=== PATIENT | female | born 1975 | race Caucasian/White ===

== ENCOUNTER 2016-03-20 07:47 | Outpatient (CLI) | payer OTHER | END 2016-03-20 07:48 | disposition home or self-care (01) | DX: K52.9 Noninfective gastroenteritis and colitis, unspecified (principal) ==

== ENCOUNTER 2016-04-08 10:53 | Day surgery (SDC) | payer OTHER ==
[2016-04-08] MEDS ORDERED: LACTATED RINGERS 1,000 ML IV ONE (11:06)
[2016-04-08] MEDS ORDERED: fentaNYL 250 MCG/5 ML VIAL IVP ONE (12:09)
[2016-04-08] MEDS ORDERED: MIDAZOLAM 2 MG/2 ML VIAL IVP ONE (12:09)
== END 2016-04-08 10:54 | disposition home or self-care (01) ==
PROC: 0DB58ZX Excision of Esophagus, Via Natural or Artificial Opening Endoscopic, Diagnostic (ICD-10-PCS; principal; 2016-04-08 12:00)
PROC: 0DBE8ZX Excision of Large Intestine, Via Natural or Artificial Opening Endoscopic, Diagnostic (ICD-10-PCS; 2016-04-08 12:00)
DX: R13.14 Dysphagia, pharyngoesophageal phase (principal); K52.9 Noninfective gastroenteritis and colitis, unspecified; R63.4 Abnormal weight loss; R11.2 Nausea with vomiting, unspecified; R12 Heartburn; R14.0 Abdominal distension (gaseous); R14.3 Flatulence; K21.9 Gastro-esophageal reflux disease without esophagitis; K64.0 First degree hemorrhoids; F17.210 Nicotine dependence, cigarettes, uncomplicated; Z98.84 Bariatric surgery status; Z83.79 Family history of other diseases of the digestive system; Z87.898 Personal history of other specified conditions
CPT/HCPCS: 43239; 45380; J3010; J7120

== ENCOUNTER 2016-05-09 20:05 | Emergency (ER) | payer OTHER ==
[2016-05-09] MEDS ORDERED: IOPAMIDOL-300 100 ML VIAL IVP ONE (21:54)
[2016-05-09] MEDS ORDERED: HYDROmorphone 1 MG/ML SYRINGE IVP STA (23:03)
[2016-05-09] MEDS ORDERED: HYDROcod/ACET 5/325 Prepack 6 PO STA (23:03)
[2016-05-09] MEDS ORDERED: HYDROmorphone 1 MG/ML SYRINGE ONE (23:07)
[2016-05-09] MEDS ORDERED: HYDROcod/ACET 5/325 Prepack 6 PO ONE (23:08)
== END 2016-05-09 23:25 | disposition home or self-care (01) ==
DX: R10.84 Generalized abdominal pain (principal); K80.80 Other cholelithiasis without obstruction; Z98.84 Bariatric surgery status; J45.909 Unspecified asthma, uncomplicated; K21.9 Gastro-esophageal reflux disease without esophagitis; Z87.11 Personal history of peptic ulcer disease; F17.200 Nicotine dependence, unspecified, uncomplicated
CPT/HCPCS: 36415; 74177; 80053; 81003; 81025; 83690; 85025; 96374; 99284; J1170; Q9967

== ENCOUNTER 2016-07-07 22:37 | Emergency (ER) | payer OTHER ==
[2016-07-07 23:05] LABS: BILIRUBIN,URINE NEGATIVE (NEGATIVE)
[2016-07-07 23:10] LABS: UA w/ MICROSCOPIC CHARGE YES
[2016-07-07 23:14] LABS: UR CULTURE IF IND NOT INDICATED; WBC,URINE 0-3 /HPF (0-5)
--- NOTE | 2016-07-08 01:24 | ED Physician Documentation ---
PD HPI ABD PAIN - Stated complaint Stated Complaint: STOMACH PX - Chief complaint Chief Complaint: Abd Pain - History obtained from History obtained from: Patient - History of Present Illness Timing - onset: Enter time (19:15) Timing - duration: Hours Timing - details: Abrupt onset Pain level now: 6 Quality: Pain Location: All over / everywhere Radiation: Lower back Improved by: Other (no ameliorating factors) Worsened by: Moving Associated symptoms: Nausea. No: Fever, Vomiting, Diarrhea, Constipation Similar symptoms before: No diagnosis (similar symptoms in the past, T+R 2 months ago from this ED for similar symptoms, and she has seen PMD and GI with w /u that included upper and lower endoscopy without diagnostic results ( cholelithiasis on CT, not clear if this was etiology of her symptoms)) Review of Systems Constitutional: denies: Fever, Chills, Sweats Cardiac: reports: Reviewed and negative Respiratory: reports: Reviewed and negative GI: reports: Abdominal Pain, Nausea. 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 - Present Medications Home Medications: Ambulatory Orders Medication Instructions Recorded Confirmed Albuterol 2.5 mg INH Q4H PRN 09/23/15 04/08/16 Fluticasone/Salmeterol [Advair 250 mg PO DAILY 09/23/15 04/07/16 250-50 Diskus] Montelukast [Singulair] 10 mg PO QPM 09/23/15 04/07/16 Pantoprazole [Protonix] 40 mg PO DAILY 09/23/15 04/07/16 traZODone [Desyrel] 150 mg PO HS 09/23/15 04/07/16 Ferrous Sulfate [Iron] 325 mg PO DAILY 04/07/16 04/07/16 HYDROcod/ACETAM 5/325 [[place] 5/325] 1 - 2 ea PO Q6H PRN #15 tablet 05/09/16 - Allergies Allergies/Adverse Reactions: Allergies Allergy/AdvReac Type Severity Reaction Status Date / Time Macrolide Antibiotics AdvReac Unknown Verified 05/09/16 20:09 NSAIDS (Non-Steroidal AdvReac Unknown Verified 05/09/16 20:09 Anti-Inflamma ondansetron HCl * AdvReac Unknown Verified 05/09/16 20:09 [From Zofran (as hydrochloride)] - Social History Does the pt smoke?: Yes Smoking Status: Light tobacco smoker Does the pt drink ETOH?: No Does the pt have substance abuse?: No - Immunizations Immunizations are current?: Yes - POLST Patient has POLST: No PD ED PE NORMAL - Vitals Vital signs reviewed: Yes - General General: Alert and oriented X 3, Well developed/nourished, Other (appears uncomfortable) - Cardiac Cardiac: RRR, No murmur - Respiratory Respiratory: No respiratory distress, Clear bilaterally - Abdomen Abdomen: Soft, Non tender, Non distended - Back Back: No CVA TTP Results - Vitals Vitals: Oxygen O2 Source Room air - Labs Labs: Laboratory Tests 07/07/16 07/08/16 07/08/16 22:54 01:54 01:54 WBC 10.2 RBC 4.24 Hgb 11.8 L Hct 35.1 L MCV 82.6 MCH 27.8 MCHC 33.7 RDW 13.9 Plt Count 215 MPV 8.5 Neut # 7.3 H Lymph # 1.9 [place] # 0.7 Eos # 0.2 Baso # 0.1 Absolute Nucleated RBC 0.00 Nucleated RBCs 0.0 Sodium 139 Potassium 3.8 Chloride 106 Carbon Dioxide 26 Anion Gap 7.0 BUN 12 Creatinine 0.7 Estimated GFR (MDRD) 94 Glucose 99 Calcium 8.7 Total Bilirubin 0.5 AST 13 ALT < 10 L Alkaline Phosphatase 50 Total Protein 6.6 L Albumin 3.7 Globulin 2.9 Albumin/Globulin Ratio 1.3 Lipase 20 L Urine Color YELLOW Urine Clarity CLEAR Urine pH 6.0 Ur Specific [place] 1.025 Urine Protein NEGATIVE Urine Glucose (UA) NEGATIVE Urine Ketones NEGATIVE Urine Occult Blood LARGE H Urine Nitrite NEGATIVE Urine Bilirubin NEGATIVE Urine Urobilinogen 0.2 (NORMAL) Ur Leukocyte Esterase NEGATIVE Urine RBC 6-10 H Urine WBC 0-3 Ur Squamous Epith Cells RARE Squamous Urine Bacteria Rare Ur Microscopic Review INDICATED Urine Culture Comments NOT INDICATED PD MEDICAL DECISION MAKING - ED course Complexity details: reviewed old records, reviewed results, re-evaluated patient , considered differential, d/w patient Departure - Departure Disposition: 01 Home, Self Care Clinical Impression: Abdominal pain Qualifiers: Abdominal location: generalized Qualified Code(s): R10.84 - Generalized abdominal pain Condition: Good Instructions: ED Abdominal Pain Unkn Cause Follow-Up: [facility] Callahan [Provider Group] - Within 3 Days Discharge Date/Time: 07/08/16 04:52
[2016-07-08] MEDS ORDERED: HYDROmorphone 1 MG/ML SYRINGE IVP STA (01:41)
[2016-07-08] MEDS ORDERED: SODIUM CHLORIDE 0.9% 1,000 ML IV STA (01:41)
[2016-07-08] MEDS ORDERED: PROMETHAZINE INJ 12.5 MG in SODIUM CHLORIDE 0.9% 50 ML IV STA (01:41)
[2016-07-08] MEDS ORDERED: HYDROmorphone 1 MG/ML SYRINGE ONE (02:04)
[2016-07-08] MEDS ORDERED: PROMETHAZINE 25 MG/1 ML VIAL ONE (02:04)
[2016-07-08 02:15] LABS: BASOPHILS # (AUTO) 0.1 10^3/uL (0.0-0.1); BASOPHILS % (AUTO) 0.5 %; EOSINOPHILS # (AUTO) 0.2 10^3/uL (0.0-0.7); EOSINOPHILS % (AUTO) 2.3 %; HCT - HEMATOCRIT 35.1 % (37.0-47.0); HGB - HEMOGLOBIN 11.8 g/dL (12.0-16.0); LYMPHOCYTES # (AUTO) 1.9 10^3/uL (1.5-3.5); LYMPHOCYTES % (AUTO) 18.9 %; MEAN CORPUSCULAR HEMOGLOBIN 27.8 pg (27.0-31.0); MEAN CORPUSCULAR HGB CONC 33.7 g/dL (32.0-36.0); MEAN CORPUSCULAR VOLUME 82.6 fL (81.0-99.0); MEAN PLATELET VOLUME 8.5 fL (7.9-10.8); MONOCYTES # (AUTO) 0.7 10^3/uL (0.0-1.0); MONOCYTES % (AUTO) 6.5 %; NEUTROPHILS # (AUTO) 7.3 10^3/uL (1.5-6.6); NEUTROPHILS % (AUTO) 71.8 %; RED BLOOD COUNT 4.24 10^6/uL (4.20-5.40); RED CELL DISTRIBUTION WIDTH 13.9 % (12.0-15.0); UNCORRECTED WHITE BLOOD COUNT 10.2 x10^3/uL; WHITE BLOOD COUNT 10.2 x10^3/uL (4.8-10.8)
[2016-07-08 02:30] LABS: ALBUMIN/GLOBULIN RATIO 1.3 (1.0-2.2); BILIRUBIN,TOTAL 0.5 mg/dL (0.2-1.0); BUN - BLOOD UREA NITROGEN 12 mg/dL (6-20); CALCIUM 8.7 mg/dL (8.5-10.3); CARBON DIOXIDE - CO2 26 mmol/L (21-32); CHLORIDE 106 mmol/L (101-111); CREATININE 0.7 mg/dL (0.4-1.0); GFR - MDRD 94 (>89); GLUCOSE 99 mg/dL (70-100); LIPASE 20 U/L (22-51); POTASSIUM 3.8 mmol/L (3.5-5.0); SODIUM 139 mmol/L (135-145); TOTAL PROTEIN 6.6 g/dL (6.7-8.2)
[2016-07-08] MEDS ORDERED: oxyCOD/ACETAMIN 5 MG/325 MG TABLET PO STA (04:37)
[2016-07-08] MEDS ORDERED: oxyCOD/ACETAMIN 5 MG/325 MG TABLET PO ONE (04:37)
[2016-07-08 04:52] VITALS: BP 113/62
== END 2016-07-08 04:52 | disposition home or self-care (01) ==
LOC: ED 22:37
DX: R10.84 Generalized abdominal pain (principal); M54.5 Low back pain; J45.909 Unspecified asthma, uncomplicated; K21.9 Gastro-esophageal reflux disease without esophagitis; Z87.11 Personal history of peptic ulcer disease; F17.200 Nicotine dependence, unspecified, uncomplicated
CPT/HCPCS: 36415; 80053; 81001; 83690; 85025; 96374; 96375; 99283; A9270; J1170; 81003; 87086

== ENCOUNTER 2017-12-31 21:27 | Outpatient (CLI) | payer OTHER | END 2017-12-31 21:28 | disposition short-term general hospital (02) | LOC: EMS 21:27 | PROVIDERS: ATTEND Surgery | DX: R10.10 Upper abdominal pain, unspecified (principal) | CPT/HCPCS: A0425; A0427 ==

== ENCOUNTER 2018-07-29 11:41 | Day surgery (SDC) | payer OTHER ==
[2018-07-29] MEDS ORDERED: BUPIVACAINE 0.25%-EPI 1:200000 PF 30 ML VIAL ONE (12:18)
--- NOTE | 2018-07-29 12:37 | ANESTHESIA ---
Pre-Anesthesia VS, & Labs - Diagnosis Missed - Procedure Suction D and C Vital Signs: Temp Pulse Resp BP Pulse Ox 36.5 C 68 18 124/70 100 07/29/18 12:15 07/29/18 12:15 07/29/18 12:15 07/29/18 12:15 07/29/18 12:15 Height 5 ft 6 in Weight (kg) 92.53 kg Body Mass Index 25.8 - NPO >8 hours, Other (Water at 1000) - Is Patient ?: No - Lab Results Lab results reviewed: Yes Home Medications and Allergies Home Medications: Ambulatory Orders Cetirizine [ZyrTEC] 10 mg PO DAILY 07/28/18 Fluticasone/Salmeterol [Advair 500-50 Diskus] 1 each IH 07/28/18 Rabeprazole Sodium [Aciphex] 20 mg PO BID 07/28/18 tiZANidine [Zanaflex] 4 mg PO QPM 07/28/18 Albuterol 2.5 mg INH Q4H PRN 09/23/15 Montelukast [Singulair] 10 mg PO QPM 09/23/15 traZODone [Desyrel] 50 mg PO HS 09/23/15 Ferrous Sulfate [Iron] 325 mg PO DAILY 04/07/16 Cetirizine [ZyrTEC] 10 mg PO DAILY 07/28/18 Fluticasone/Salmeterol [Advair 500-50 Diskus] 1 each IH 07/28/18 Rabeprazole Sodium [Aciphex] 20 mg PO BID 07/28/18 tiZANidine [Zanaflex] 4 mg PO QPM 07/28/18 Allergies/Adverse Reactions: Allergies Allergy/AdvReac Type Severity Reaction Status Date / Time Macrolide Antibiotics Allergy Respiratory Verified 07/28/18 14:11 ondansetron HCl * Allergy Respiratory Verified 07/28/18 14:11 [From Zofran (as hydrochloride)] NSAIDS (Non-Steroidal AdvReac Unknown Verified 07/28/18 14:11 Anti-Inflamma Anes History & Medical History - Anesthetic History Anesthesia Complications: reports: No previous complications Family history of Anesthesia Complications: Denies Family history of Malignant Hyperthermia: Denies - Medical History Cardiovascular: reports: None Pulmonary: reports: Asthma Gastrointestinal: reports: None, GERD Urinary: reports: None, Other Neuro: reports: None Musculoskeletal: reports: None, Fibromyalgia Endocrine/Autoimmune: reports: None Blood Disorders: reports: None, Anemia Skin: reports: None Smoking Status: Light tobacco smoker Psychosocial: reports: No issues indicated - Surgical History General: Cholecystectomy, Gastric surgery Gynecologic: section, Breast implants Exam General: Alert Dental: WNL, TMJ Mouth Opening: Greater than 4 Fingerbreadths Neck Mobility: Normal Mallampati classification: I Respiratory: Lungs clear Cardiovascular: Regular rate Neurological: Normal speech Mental/Cognitive Status: Alert/Oriented X3 Cognitive Status: Within normal limits Plan Anesthesia Type: General Consent for Procedure(s) Verified and Reviewed: Yes Code Status: Attempt Resuscitation ASA classification: 2-Mild systemic disease Is this case an emergency?: No
[2018-07-29] MEDS ORDERED: LACTATED RINGERS 1,000 ML IV ONE (13:52)
[2018-07-29] MEDS ORDERED: BUPIVACAINE 0.25%-EPI 1:200000 PF 10 ML VIAL SUBQ ONE (13:58)
[2018-07-29] MEDS ORDERED: PROPOFOL 200 MG/20 ML VIAL IVP ONE (14:00)
[2018-07-29] MEDS ORDERED: LIDOCAINE-MPF 2% 5 ML VIAL IM ONE (14:00)
[2018-07-29] MEDS ORDERED: MIDAZOLAM 2 MG/2 ML VIAL IVP ONE (14:00)
[2018-07-29] MEDS ORDERED: DEXAMETHASONE 4 MG/ML VIAL IVP ONE (14:00)
[2018-07-29] MEDS ORDERED: fentaNYL 100 MCG/2 ML VIAL IVP ONE (14:00)
[2018-07-29] MEDS ORDERED: HYDROcod/ACETAM 10 MG/325 MG TABLET PO PRN (14:06)
--- NOTE | 2018-07-29 14:10 | OPERATIVE REPORT ---
Operative Report - General Procedure Date: 07/29/18 Planned Procedure: Suction dilation and curettage Pre-Op Diagnosis: Missed Procedure Performed: Suction dilation and curettage Post Op Diagnosis: ZURI - Procedure Note Primary Surgeon: Dr. Neda Interiano Secondary Surgeon: None Anesthesia Provider: Daryl Mendoza Anesthesia Technique: General LMA Pathology: Intrauterine contents IV Fluids (mL): 200 Estimated Blood Loss (mL): 15 Urine Output (mL): 0 Indications: The patient is a 42-year-old 2 para 1 female here for surgical management of an early miscarriage. The loss was diagnosed following an inappropriate rise in her beta hCG levels as well as lack of development of a viable intrauterine and inconsistency with sonographic gestational age and date of conception. No clear pole or heartbeat was ever seen during this gestation. She attempted to medically manage the miscarriage using misoprostol 800 mcg per vagina on 23 July. However, subsequently she did not pass tissue and only developed cramping and bleeding. Rather than attempt a second dose of medication, she desired surgical management in the form of a dila tion and curettage. The risks, benefits, limitations, alternatives, and expectations of surgery were discussed. The consent was then reviewed and signed prior to the date of surgery. Findings: Exam under anesthesia: The uterus was midplane to retroverted. No adnexal masses were palpable. The cervix was closed. Operative findings: The cervix was dilated to approximately 8 mm. Some mucus was noted at the external cervical os. There was scant dark blood in the vagina. Dilation and curettage resulted in removal of a moderate amount of likely products of conception. Complications: None - Other Other Information/Narrative: The patient was taken to the operating room, where general anesthesia with LMA was administered without difficulty. She was then positioned in the high dorsal lithotomy position with her lower extremities in [place] stirrups. Exam under anesthesia was then performed with the findings as noted above. Vagina and perineum were then prepped and draped in a sterile fashion. The patient had voided prior to entering the OR. Procedure Time-Out was then performed. A sterile bivalved speculum was then placed into the vagina, and the anterior lip of the cervix was grasped with a single-tooth tenaculum. Quarter percent Marcaine with epinephrine was then injected at the 2:00, 4:00, 7:00, and 10:00 positions for a paracervical block. Serial dilation using Hegar dilators was started, then an 8 mm curved rigid suction curette was easily passed through the cervical os and gently advanced to the uterine fundus. Using gentle suction, tissue and clot were removed. Sharp curettage was then performed with minimal additional tissue noted. Good crie was noted on all 4 payton of the uterus. The suction curette was then reintroduced to ensure there was no residual tissue, and none was noted. There was no bleeding from the cervix at this time. The tenaculum was removed, and the tenaculum sites were hemostatic without need for silver nitrate. At this point, the procedure was deemed completed. Sponge, lap, and needle count were correct x 3, and there were no complications. The patient was awakened, replaced supine, and transferred to the PACU in stable condition.
[2018-07-29 14:42] VITALS: BP 111/74
== END 2018-07-29 11:42 | disposition home or self-care (01) ==
LOC: SDS 11:41
PROVIDERS: ATTEND Obstetrics & Gynecology
PROC: 10D17Z9 Manual Extraction of Products of Conception, Retained, Via Natural or Artificial Opening (ICD-10-PCS; principal; 2018-07-29 13:00)
DX: O02.1 Missed abortion (principal); J45.40 Moderate persistent asthma, uncomplicated; K21.9 Gastro-esophageal reflux disease without esophagitis; F17.210 Nicotine dependence, cigarettes, uncomplicated; Z79.899 Other long term (current) drug therapy
CPT/HCPCS: 59820; J7120

== ENCOUNTER 2019-02-18 16:23 | Emergency (ER) | payer OTHER ==
--- NOTE | 2019-02-18 17:11 | ED Physician Documentation ---
History of Present Illness - Stated complaint Stated Complaint: NEURO ISSUES/VOMITING/PX - Chief complaint Chief Complaint: Neuro - History obtained from History obtained from: Patient - History of Present Illness Timing: Today Pain level max: 0 Pain level now: 0 - Additonal information Additional information: 43-year-old female complains of pain to the left forehead and left maxillary area. States it feels like pressure. Worse with movement and bending over. Nothing makes it better. Saw her doctor, was diagnosed with sinusitis and placed on azithromycin. States that she is still having the pain. No fevers. She has not taken any decongestants. No intranasal steroids. No sore throat. No cough. 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, Breast implants - Present Medications Home Medications: Ambulatory Orders Medication Instructions Recorded Confirmed Albuterol 2.5 mg INH Q4H PRN 09/23/15 04/08/16 Montelukast [Singulair] 10 mg PO QPM 09/23/15 04/07/16 traZODone [Desyrel] 50 mg PO HS 09/23/15 04/07/16 Ferrous Sulfate [Iron] 325 mg PO DAILY 04/07/16 04/07/16 HYDROcod/ACETAM 5/325 [[place] 5/325] 1 - 2 ea PO Q6H PRN #15 tablet 05/09/16 Cetirizine [ZyrTEC] 10 mg PO DAILY 07/28/18 07/29/18 Fluticasone/Salmeterol [Advair 1 each IH 07/28/18 500-50 Diskus] Rabeprazole Sodium [Aciphex] 20 mg PO BID 07/28/18 07/29/18 tiZANidine [Zanaflex] 4 mg PO QPM 07/28/18 07/29/18 Cetirizine HCl/Pseudoephedrine 1 each PO BID PRN #30 tab.er.12h 02/18/19 [Zyrtec-D Tablet] Fluticasone [Flonase] 1 sprays [place] BID PRN #1 bottle 02/18/19 Oxymetazoline HCl [Afrin] 1 sprays [place] BID PRN #1 bottle 02/18/19 - Allergies Allergies/Adverse Reactions: Allergies Allergy/AdvReac Type Severity Reaction Status Date / Time Macrolide Antibiotics Allergy Respiratory Verified 02/18/19 16:38 ondansetron HCl * Allergy Respiratory Verified 02/18/19 16:38 [From Zofran (as hydrochloride)] NSAIDS (Non-Steroidal AdvReac Unknown Verified 02/18/19 16:38 Anti-Inflamma - Social History Does the pt smoke?: Yes Smoking Status: Light tobacco smoker Does the pt drink ETOH?: No Does the pt have substance abuse?: No - Immunizations Immunizations are current?: Yes - POLST Patient has POLST: No PD ED PE NORMAL - Vitals Vital signs reviewed: Yes - General General: Alert and oriented X 3, No acute distress, Well developed/nourished - HEENT HEENT: PERRL, Ears normal, Moist mucous membranes, Other (Tender palpation over the left maxillary and frontal sinuses.) - Neck Neck: Supple, no meningeal sign - Cardiac Cardiac: RRR, Strong equal pulses - Respiratory Respiratory: No respiratory distress, Clear bilaterally - Abdomen Abdomen: Soft, Non tender, Non distended - Derm Derm: Warm and dry - Neuro Neuro: Alert and oriented X 3 - Psych Psych: Normal mood, Normal affect Results - Vitals Vitals: Vital Signs - 24 hr 02/18/19 02/18/19 16:33 17:32 Temperature 36.8 C Heart Rate 82 80 Respiratory 18 16 Rate Blood Pressure 107/73 110/72 O2 Saturation 100 100 Oxygen O2 Source Room air PD MEDICAL DECISION MAKING - ED course Complexity details: considered differential, d/w patient ED course: Patient with what appears to be sinusitis. No fevers. Will place on decongestants and intranasal steroids for home. She is well-appearing, nontoxic. Patient counseled regarding signs and symptoms for which I believe and urgent re-evaluation would be necessary. Patient with good understanding of and agreement to plan and is comfortable going home at this time This document was made in part using voice recognition software. While efforts are made to proofread this document, sound alike and grammatical errors may occur. Departure - Departure Disposition: 01 Home, Self Care Clinical Impression: Sinusitis Qualifiers: Sinusitis location: unspecified location Chronicity: acute Recurrence: non- recurrent Qualified Code(s): J01.90 - Acute sinusitis, unspecified Condition: Good Instructions: ED Sinusitis No Abx Follow-Up: Jeff Maxwell ARNP [Primary Care Provider] - Within 1 week Prescriptions: Cetirizine HCl/Pseudoephedrine [Zyrtec-D Tablet] 1 each PO BID PRN #30 tab.er.12h PRN Reason: nasal congestion Fluticasone [Flonase] 1 sprays [place] BID PRN #1 bottle PRN Reason: Nasal Congestion Oxymetazoline HCl [Afrin] 1 sprays [place] BID PRN #1 bottle PRN Reason: Nasal Congestion Comments: Return if you worsen. Follow-up with your doctor for further care. Use the medications as prescribed. This should help to drain your sinuses. Discharge Date/Time: 02/18/19 17:32
[2019-02-18] MEDS ORDERED: DEXAMETHASONE 10 MG/ML VIAL PO STA (17:23)
[2019-02-18] MEDS: CHERRY SYRUP 10 ML UDC PO ONE (17:27)
[2019-02-18 17:33] VITALS: BP 110/72
== END 2019-02-18 17:32 | disposition home or self-care (01) ==
LOC: ED 16:23
DX: J01.90 Acute sinusitis, unspecified (principal)
CPT/HCPCS: 99283; 99284; A9270

== ENCOUNTER 2020-01-26 15:39 | Outpatient (CLI) | payer OTHER ==
--- NOTE | 2020-02-05 10:20 | Mammography Report ---
BILATERAL DIGITAL SCREENING MAMMOGRAM 3D/2D: 01/26/2020 CLINICAL: Routine screening. No prior exams were available for comparison. There are scattered fibroglandular elements in both br easts. There are benign post operative findings in the right breast. No significant masses, calcifications, or other findings are seen in either breast. IMPRESSION: BENIGN There is no mammographic evidence of malignancy. A 1 year screening mammogram is recommended. This exam was interpreted at Station ID: [id number]. NOTE: For mammograms, a report in lay terms will be sent to the patient. Approximately 15% of breast malignancies will not be visualized mammographically. In the management of a palpable breast mass, a negative mammogram must not discourage biopsy of a clinically suspicious lesion. Electronically Signed By: Jimmy Morrell M.D. [email or web address]:02/02/2020 16:45:47 ACR BI-RADS Category 2: Benign Finding(s) 3342F PARENCHYMAL PATTERN: (A) - The breast(s) demonstrate(s) scattered fibroglandular densities. BI-RADS CATEGORY: (2) - 2 RECOMMENDATION: (ANNUAL) - Recommend routine annual screening mammography. [id number] 1 year screening LATERALITY: (B)
== END 2020-01-26 15:40 | disposition home or self-care (01) ==
LOC: DI.N 15:39
DX: Z12.31 Encounter for screening mammogram for malignant neoplasm of breast (principal)
CPT/HCPCS: 77067

== ENCOUNTER 2020-04-18 18:04 | Emergency (ER) | payer OTHER ==
[2020-04-18 18:37] LABS: BASOPHILS # (AUTO) 0.1 10^3/uL (0.0-0.1); BASOPHILS % (AUTO) 0.7 %; EOSINOPHILS # (AUTO) 0.2 10^3/uL (0.0-0.7); EOSINOPHILS % (AUTO) 3.2 %; HGB - HEMOGLOBIN 12.3 g/dL (12.0-16.0); LYMPHOCYTES # (AUTO) 2.6 10^3/uL (1.5-3.5); LYMPHOCYTES % (AUTO) 36.5 %; MEAN CORPUSCULAR HEMOGLOBIN 26.7 pg (27.0-31.0); MEAN CORPUSCULAR HGB CONC 31.8 g/dL (32.0-36.0); MEAN CORPUSCULAR VOLUME 84.1 fL (81.0-99.0); MEAN PLATELET VOLUME 9.8 fL (7.9-10.8); MONOCYTES # (AUTO) 0.6 10^3/uL (0.0-1.0); MONOCYTES % (AUTO) 8.4 %; NEUTROPHILS # (AUTO) 3.6 10^3/uL (1.5-6.6); NEUTROPHILS % (AUTO) 50.9 %; PLT - PLATELET COUNT 262 10^3/uL (130-450); WHITE BLOOD COUNT 7.1 x10^3/uL (4.8-10.8)
[2020-04-18 18:37] LABS: BILIRUBIN,URINE NEGATIVE (NEGATIVE); GLUCOSE, URINE (UA) NEGATIVE (NEGATIVE); KETONES,URINE (UA) TRACE mg/dL (NEGATIVE); LEUKOCYTE ESTERASE, URINE NEGATIVE (NEGATIVE); NITRITE,URINE NEGATIVE (NEGATIVE); OCCULT BLOOD,URINE NEGATIVE (NEGATIVE); PROTEIN,URINE NEGATIVE (NEGATIVE); UROBILINOGEN,URINE 0.2 (NORMAL) E.U./dL (NORMAL)
[2020-04-18 18:38] LABS: CLARITY,URINE CLEAR (CLEAR); HCG UR QUAL NEGATIVE
[2020-04-18 18:49] LABS: ALBUMIN/GLOBULIN RATIO 1.2 (1.0-2.2); BILIRUBIN,TOTAL 0.5 mg/dL (0.2-1.0); CALCIUM 8.8 mg/dL (8.5-10.3); CREATININE 0.8 mg/dL (0.4-1.0); TOTAL PROTEIN 7.4 g/dL (6.7-8.2)
[2020-04-18] MEDS ORDERED: PROMETHAZINE INJ 12.5 MG in SODIUM CHLORIDE 0.9% 50 ML IV STA (19:20)
[2020-04-18] MEDS ORDERED: HYDROmorphone 1 MG/ML CARPUJECT IVP STA (19:20)
--- NOTE | 2020-04-18 19:25 | ED Physician Documentation ---
PD HPI ABD PAIN - Stated complaint Stated Complaint: ABD BACK & LEG PX - Chief complaint Chief Complaint: Abd Pain - History obtained from History obtained from: Patient - History of Present Illness Timing - onset: Enter time (1644), Today Timing - duration: Hours Timing - details: Abrupt onset, Still present Quality: Cramping, Sharp, Pain Location: LLQ Radiation: Lower back Improved by: Laying still Worsened by: Moving, Position, Palpation Associated symptoms: Nausea. No: Vomiting, Hematemesis, Diarrhea, Constipation, Hematochezia, Dysuria, Hematuria, Chest pain Similar symptoms before: Diagnosis (ovarian cyst) Recently seen: Clinic (Seen by NET DEVELOPER 3 wks ago for ovarian cyst) - Additional information Additional information: 42-year-old female with a history of ovarian cysts has developed acute pelvic pain she is concerned this may be again another cyst. She is not having fever or vomiting or diarrhea and she is not otherwise ill. She has pain the pain is similar to what she has had previously with a hemorrhagic cyst. She has been into see the NET DEVELOPER doctor within the past 3 weeks and has had a pelvic ultrasound done demonstrating again cysts. She has not started on control. Review of Systems Constitutional: denies: Fever Eyes: denies: Decreased vision Ears: denies: Ear pain Nose: denies: Congestion Throat: denies: Sore throat Cardiac: denies: Chest pain / pressure, Palpitations Respiratory: denies: Dyspnea GI: reports: Abdominal Pain. 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 DEVELOPER: section, Breast implants Derm: Other - Present Medications Home Medications: Ambulatory Orders Medication Instructions Recorded Confirmed Montelukast [Singulair] 10 mg PO QPM 09/23/15 04/07/16 traZODone [Desyrel] 50 mg PO HS 09/23/15 04/07/16 Rabeprazole Sodium [Aciphex] 20 mg PO BID 07/28/18 07/29/18 tiZANidine [Zanaflex] 4 mg PO QPM 07/28/18 07/29/18 HYDROcod/ACETAM 5/325 [[place] 5/325] 1 - 2 ea PO Q6H PRN #15 tab 04/18/20 - Allergies Allergies/Adverse Reactions: Allergies Allergy/AdvReac Type Severity Reaction Status Date / Time Macrolide Antibiotics Allergy Respiratory Verified 04/18/20 18:20 ondansetron HCl * Allergy Respiratory Verified 04/18/20 18:20 [From Zofran (as hydrochloride)] NSAIDS (Non-Steroidal AdvReac Unknown Verified 04/18/20 18:20 Anti-Inflamma - Social History Does the pt smoke?: Yes Smoking Status: Current every day smoker Does the pt drink ETOH?: No Does the pt have substance abuse?: No - Immunizations Immunizations are current?: Yes - POLST Patient has POLST: No PD ED PE NORMAL - Vitals Vital signs reviewed: Yes - General General: Alert and oriented X 3, Well developed/nourished, Other (appears uncomfortable with field instructor 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 and flat affect .) - HEENT HEENT: Atraumatic, PERRL, EOMI - Neck Neck: Supple, no meningeal sign, No bony TTP - Cardiac Cardiac: RRR, No murmur - Respiratory Respiratory: No respiratory distress, Clear bilaterally - Abdomen Abdomen: Normal bowel sounds, Soft, Non distended, No organomegaly, Other (minimal left suprapubic pain ) - Back Back: No CVA TTP, No spinal TTP - Derm Derm: Normal color, Warm and dry, No rash - Extremities Extremities: No deformity, No edema - Neuro Neuro: Alert and oriented X 3, sprinkler worker 2-12 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, No motor deficit, No sensory deficit, Normal speech Eye Opening: Spontaneous Motor: Obeys Commands Verbal: Oriented GCS Score: 15 - Psych Psych: Normal mood, Normal affect Results - Vitals Vitals: Vital Signs - 24 hr 04/18/20 04/18/20 04/18/20 18:14 19:12 20:43 Temperature 36.7 C 36.7 C Heart Rate 82 78 75 Respiratory 18 18 18 Rate Blood Pressure 139/74 H 132/66 H 120/79 O2 Saturation 99 100 100 04/18/20 04/18/20 22:00 22:07 Temperature 36.7 C 36.7 C Heart Rate 72 72 Respiratory 18 19 Rate Blood Pressure 132/71 H 132/71 H O2 Saturation 98 98 Oxygen O2 Source Room air - Labs Labs: Laboratory Tests 04/18/20 04/18/20 04/18/20 18:25 18:34 18:34 WBC 7.1 RBC 4.60 Hgb 12.3 Hct 38.7 MCV 84.1 MCH 26.7 L MCHC 31.8 L RDW 14.0 Plt Count 262 MPV 9.8 Neut # (Auto) 3.6 Lymph # (Auto) 2.6 [place] # (Auto) 0.6 Eos # (Auto) 0.2 Baso # (Auto) 0.1 Absolute Nucleated RBC 0.00 Nucleated RBC % 0.0 Sodium 135 Potassium 4.1 Chloride 102 Carbon Dioxide 20 L Anion Gap 13.0 BUN 11 Creatinine 0.8 Estimated GFR (MDRD) 79 L Glucose 99 Calcium 8.8 Total Bilirubin 0.5 AST 15 ALT 17 Alkaline Phosphatase 67 Total Protein 7.4 Albumin 4.0 Globulin 3.4 Albumin/Globulin Ratio 1.2 Lipase 23 Urine Color YELLOW Urine Clarity CLEAR Urine pH 6.0 Ur Specific [place] 1.025 Urine Protein NEGATIVE Urine Glucose (UA) NEGATIVE Urine Ketones TRACE Urine Occult Blood NEGATIVE Urine Nitrite NEGATIVE Urine Bilirubin NEGATIVE Urine Urobilinogen 0.2 (NORMAL) Ur Leukocyte Esterase NEGATIVE Ur Microscopic Review NOT INDICATED Urine Culture Comments NOT INDICATED Urine HCG, Qual NEGATIVE - Rads (name of study) Pelvic ultrasound Radiology: Prelim report reviewed (Impression: Complex left ovarian cyst, new versus priors, likely hemorrhagic cyst. The complex right ovarian cyst noted on prior ultrasound has resolved. Uterine fibroid.), EMP read indepedently, See rad report PD MEDICAL DECISION MAKING - ED course Complexity details: reviewed old records, reviewed results, re-evaluated patient, considered differential, d/w patient ED course: 44 y/o female with pelvic pain has hemorrhagic ovarian cyst and complex cyst both on the left. She is administered IV dilaudid with improvement in her pain Departure - Departure Disposition: Home, Self Care Clinical Impression: Cyst of ovary Qualifiers: Laterality: left Qualified Code(s): N83.202 - Unspecified ovarian cyst, left side Condition: Stable Instructions: ED Cyst Ovarian Follow-Up: ISAURA GA ARNP [Primary Care Provider] - Prescriptions: HYDROcod/ACETAM 5/325 [[place] ] 1 - 2 ea PO Q6H PRN #15 tab PRN Reason: Pain Discharge Date/Time: 04/18/20 22:07
[2020-04-18] MEDS ORDERED: PROMETHAZINE 25 MG/1 ML VIAL ONE (19:36)
[2020-04-18] MEDS ORDERED: HYDROcod/ACET 5/325 Prepack 4 PO STA (21:55)
[2020-04-18 22:08] VITALS: BP 132/71
--- NOTE | 2020-04-19 10:15 | Ultrasound Report ---
PROCEDURE: Pelvic w/Transvaginal INDICATIONS: LLQ PAIN TECHNIQUE: Real-time scanning was performed of the pelvic organs, with image documentation. Additional endovagi nal scanning was necessary due to incomplete visualization of the adnexal and endometrial structures by transabdominal scanning. COMPARISON: Pelvic ultrasound, 10/17/2015.. CT abdomen and pelvis with contrast, 05/09/2016. FINDINGS: No pathologic free abdominal or pelvic fluid. Uterus: Uterus is normal in size at 8.7 x 4.1 x 6.3 cm. There is a 2.4 x 1.7 x 2.0 cm intramural fi broid in the right anterior uterine wall. The endometrium measures 11 mm in combined thickness. Note is made of nabothian cysts in cervix. Ovaries: Right ovary measures 2.0 x 1.8 x 2.4 cm with an estimated volume of 4.4 cc. Left ovary annetta ures 5.4 x 3.8 x 7 cm with an estimated volume of 76 cc. There a couple complex cysts arising from th e left ovary measuring 3.5 x 3.0 x 3.1 cm and 3.6 x 2.7 x 3.2 cm. Both are new since the last pelvic ultrasound dated 10/17/2015. The complex cyst noted in the right ovaries on the last exam is no longer visualized. Note is made of right pelvic kidney. IMPRESSION: 1. Two complex left ovarian cysts are present, most likely hemorrhagic cysts. Recommend short-term fo llow-up ultrasound in 6 weeks. 2. A intramural fibroid arising from the right anterior uterine wall. 3. Right pelvic kidney. Reviewed by: Judith Garcia MD on 04/19/2020 10:14 AM PST Approved by: Judith Garcia MD on 04/19/2020 10:14 AM PST Station ID: [id number]
== END 2020-04-18 22:07 | disposition home or self-care (01) ==
LOC: ED 18:04
DX: N83.202 Unspecified ovarian cyst, left side (principal); D25.1 Intramural leiomyoma of uterus; F17.200 Nicotine dependence, unspecified, uncomplicated
CPT/HCPCS: 76830; 76856; 80053; 81003; 81025; 83690; 85025; 96365; 96375; 99284; J1170; J7040; 81001; 87086

== ENCOUNTER 2020-05-08 19:19 | Outpatient (CLI) | payer OTHER ==
--- NOTE | 2020-05-09 09:10 | Ultrasound Report ---
PROCEDURE: Ext Limited Non Vascular INDICATIONS: LOCALIZED SWELLING MASS OR LUMP TECHNIQUE: Real-time scanning was performed of the left shoulder, with image documentation. COMPARISON: None. FINDINGS: Focused ultrasound examination of superior left shoulder at patient's reported site of palpable lump shows a slightly hyperechoic oval lesion in subcutaneous soft tissue measures 2.1 x 1 x 2.3 cm in siz e. No internal vascularity is seen. No underlying deltoid muscle involvement is noted. This lesion is noncompressible. IMPRESSION: Solid slightly hyperechoic oval subcutaneous lesion measures 2.1 x 1 x 2.3 cm without in ternal vascularity. No underlying muscle involvement. Finding likely represent lipoma in this region. Clinical and sonographic follow-up is recommended. Reviewed by: Keagan Brown MD on 05/09/2020 9:08 AM PDT Approved by: Keagan Brown MD on 05/09/2020 9:08 AM PDT Station ID: [id number]
== END 2020-05-08 19:20 | disposition home or self-care (01) ==
LOC: DI 19:19
PROVIDERS: ATTEND Family Medicine
DX: R93.89 Abnormal findings on diagnostic imaging of other specified body structures (principal)

== ENCOUNTER 2021-03-26 12:58 | Outpatient (CLI) | payer OTHER ==
--- NOTE | 2021-03-27 08:41 | Mammography Report ---
BILATERAL DIGITAL SCREENING MAMMOGRAM 3D/2D: 03/26/2021 CLINICAL: Routine screening. Comparison is made to exam dated: 01/26/2020 mammogram - [facility]. There are sca ttered fibroglandular elements in both breasts. There are benign post operative findings in the right breast. No significant masses, calcifications, or other findings are seen in either breast. There has been no significant interval change. IMPRESSION: BENIGN There is no mammographic evidence of malignancy. A 1 year screening mammogram is recommended. This exam was interpreted at Station ID: [id number]. NOTE: For mammograms, a report in lay terms will be sent to the patient. Approximately 15% of breast malignancies will not be visualized mammographically. In the management of a palpable breast mass, a negative mammogram must not discourage biopsy of a clinically suspicious lesion. Electronically Signed By: Colin Haro acr/penrad:03/26/2021 15:43:19 ACR BI-RADS Category 2: Benign Finding(s) 3342F PARENCHYMAL PATTERN: (A) - The breast(s) demonstrate(s) scattered fibroglandular densities. BI-RADS CATEGORY: (2) - 2 RECOMMENDATION: (ANNUAL) - Recommend routine annual screening mammography. [id number] 1 year screening LATERALITY: (B)
== END 2021-03-26 12:59 | disposition home or self-care (01) ==
LOC: DI.N 12:58
DX: Z12.31 Encounter for screening mammogram for malignant neoplasm of breast (principal)

== ENCOUNTER 2021-07-19 08:00 | Outpatient (CLI) | payer OTHER ==
--- NOTE | 2021-07-19 11:08 | XRAY Report ---
PROCEDURE: Chest 2 View X-Ray INDICATIONS: CHRONIC COUGH TECHNIQUE: 2 view(s) of the chest. COMPARISON: None. FINDINGS: Surgical changes and devices: None. Lungs and pleura: No pleural effusions or pneumothorax. Lungs are clear. Mediastinum: Mediastinal contours are normal. Heart size is normal. Bones and chest wall: No suspicious bony abnormalities. Soft tissues appear unremarkable. IMPRESSION: No acute pulmonary process. Reviewed by: Emmanuelle Angel MD on 07/19/2021 11:06 AM PDT Approved by: Emmanuelle Angel MD on 07/19/2021 11:06 AM PDT Station ID: [id number]
== END 2021-07-19 23:59 | disposition home or self-care (01) ==
LOC: DI.N 08:00
PROVIDERS: ATTEND Physician Assistant
DX: R05.3 Chronic cough (principal)

== ENCOUNTER 2021-10-27 11:34 | Outpatient (CLI) | payer OTHER | END 2021-10-27 11:35 | disposition home or self-care (01) | LOC: RT 11:34 | PROVIDERS: ATTEND Student in an Organized Health Care Education/Training Program | DX: R05.3 Chronic cough (principal); K21.9 Gastro-esophageal reflux disease without esophagitis; J45.909 Unspecified asthma, uncomplicated; Z98.84 Bariatric surgery status | CPT/HCPCS: 94010 ==